=== PATIENT | female | born 1950 | race Caucasian/White ===

== ENCOUNTER 2023-12-12 04:29 | Inpatient (IN) | payer MEDICARE, OTHER, SELFPAY ==
[2023-12-11 17:33] VITALS: BP 150/94
[2023-12-11 19:35] VITALS: BP 124/59
[2023-12-11 19:46] LABS: % Basophils 0.2 % (0-2); % Eosinophils 0.1 % (0-6); % Immature Granulocytes 0.6 % (0-0.5); % Lymphocytes 2.8 % (20.5-51.1); % Monocytes 7.6 % (1.7-9.3); % Neutrophils 88.7 % (42.2-75.2); Absolute Immature Granulocytes 0.1 10^3/uL (0-0.05); Absolute Lymphocytes 0.3 10^3/uL (1.2-3.4); Absolute Monocytes 0.8 10^3/uL (0.1-0.6); Absolute Neutrophils 9.7 10^3/uL (1.4-6.5); Hematocrit 32.8 % (37.0-47.0); Hemoglobin 11.5 g/dL (12.0-16.0); Mean Corp Hgb Conc. 35.1 g/dL (33.0-37.0); Mean Corpuscular Hgb 32.2 pg (27.0-31.0); Mean Corpuscular Volume 91.9 fL (81.0-99.0); Mean Platelet Volume 9.1 fL (7.4-10.4); Nucleated Red Blood Cells % 0 %; Platelet Count 282 10^3/uL (130-400); Red Blood Cell Count 3.57 10^6/uL (4.20-5.40); Red Cell Dist. Width 13.9 % (11.5-14.5)
[2023-12-11 19:53] LABS: Lactic Acid 1.1 mmol/L (0.7-2.0)
[2023-12-11 20:00] VITALS: BP 127/65
[2023-12-11 20:13] LABS: Troponin I < 0.012 ng/ml
[2023-12-11 20:16] LABS: ALT (SGPT) 503 U/L (0-35); Albumin 4.4 g/dl (3.5-5.0); Alkaline Phosphatase 361 U/L (38-126); Blood Urea Nitrogen 18 mg/dl (7-17); Calcium 10.3 mg/dl (8.4-10.2); Carbon Dioxide 24 mmol/L (22-30); Chloride 103 mmol/L (98-107); Glucose 127 mg/dl (70-99); Potassium 4.1 mmol/L (3.5-5.1); Sodium 138 mmol/L (135-145); Total Bilirubin 2.5 mg/dl (0.2-1.3); Total Protein 6.7 g/dl (6.3-8.2); eGFR > 60.00
[2023-12-11 20:20] LABS: AST (SGOT) 805 U/L (14-36)
[2023-12-11 20:43] LABS: Urine Albumin Negative (Neg - Trace); Urine Bilirubin Negative (Negative); Urine Character Clear (Clear); Urine Color Yellow; Urine Glucose Negative (Negative); Urine Ketone Negative (Negative); Urine Leukocyte Negative (Negative); Urine Nitrite Negative (Negative); Urine Occult Blood Negative (Negative); Urine Urobilinogen 1+ (Neg - 1+)
[2023-12-11] MEDS: NSS 1000 IV (20:55)
[2023-12-11 20:56] LABS: D-Dimer 3.61 ug/mlFEU (0.00-0.50)
[2023-12-11 20:57] LABS: COVID-19 Antigen Negative (Negative)
--- NOTE | 2023-12-11 20:57 | ED.GENMED ---
History of Present Illness
General
Chief Complaint: Chest Problem
Time Seen by Provider: 12/11/23 19:23
History of Present Illness
History of Present Illness:
73-year-old female with history of GERD, hypothyroidism, hyperlipidemia, anxiety and depression presenting to the emergency department for multiple complaints. Patient reports on 11/28 she had a left hip replacement with [facility]. She notes she was
discharged the same day, has had an uncomplicated postop course, however the same day started to develop some congestion and sore throat. In the past few days she has had some chest discomfort and burning as well as shortness of breath. She tried
taking some Tums with minimal relief. Denies history of blood clots. She has been ambulating without difficulty. She was taking oxycodone, recently came off of it and was not sure if she was withdrawing from oxycodone. Denies fever, however has
been having chills. Denies known sick contacts. Denies any issues with her hip incision, no drainage. Denies additional acute medical complaints
Phy Exam
Physical Exam
Physical Exam:
General: Well-appearing, no clinical signs of dehydration, nontoxic and in no acute distress
HEENT: protecting airway
Neck: appears supple
CV: Normal heart rate, regular rhythm, no evidence of cyanosis
Resp: No accessory muscle use, no increased work of breathing, lungs clear to auscultation bilaterally
Abd: Soft and non-distended, no tenderness to palpation, normal bowel sounds
Extremities: Incision to the left hip is clean/dry/intact. Mild ecchymosis. No drainage or erythema. No warmth on palpation
Neuro: alert, no focal neurologic deficit
: deferred
Rectal: deferred
Psych: Normal affect
Skin: Intact
Course
Orders/Labs/Results
Orders:
Orders
12/11/23 17:35
Electrocardiogram (*1) Urgent
Reason for Study: Chest Pain
EKG- Treatment ONCE
12/11/23 19:34
Complete Blood Count/With Diff Urgent
Comprehensive Metabolic Panel Urgent
Lactic Acid Urgent
Lipase Urgent
Comment: ADD ON
Troponin I Urgent
12/11/23 20:00
0.9% Sodium Chloride 1000 ml [Nss] 1,000 ml IV BOLUS
12/11/23 20:01
CR Chest - 2 Views Urgent
Comment:
Reason For Exam: cough
12/11/23 20:34
COVID-19 Antigen Urgent
Source: Nasal Swab
D-Dimer Urgent
Urinalysis Urgent
Date Specimen was Collected: 12/11/23
Time Specimen was Collected: 20:32
12/11/23 20:35
Add On- LAB Urgent
Tests Added?: lipase
12/11/23 21:26
CT Pe/abd/pel W Urgent
Reason For Exam: positive dimer, s/p hip replacement
12/11/23 23:57
US Abdomen Limited Urgent
Comment:
Reason For Exam: transaminitis, biliary sludge
Abnormal Lab Results
12/11/23 12/11/23
19:34 20:34
WBC 11.0 H 10^3/uL
(4.8-10.8)
RBC 3.57 L 10^6/uL
(4.20-5.40)
Hgb 11.5 L g/dL
(12.0-16.0)
Hct 32.8 L %
(37.0-47.0)
MCH 32.2 H pg
(27.0-31.0)
Abs Immat Gran (auto) 0.1 H 10^3/uL
(0-0.05)
Absolute Neuts (auto) 9.7 H 10^3/uL
(1.4-6.5)
Absolute Lymphs (auto) 0.3 L 10^3/uL
(1.2-3.4)
Absolute Monos (auto) 0.8 H 10^3/uL
(0.1-0.6)
Immature Gran % 0.6 H %
(0-0.5)
Neutrophils % 88.7 H %
(42.2-75.2)
Lymphocytes % 2.8 L %
(20.5-51.1)
D-Dimer 3.61 H ug/mlFEU
(0.00-0.50)
BUN 18 H mg/dl
(7-17)
Glucose 127 H mg/dl
(70-99)
Calcium 10.3 H mg/dl
(8.4-10.2)
Total Bilirubin 2.5 H mg/dl
(0.2-1.3)
AST 805 H* U/L
(14-36)
ALT 503 H* U/L
(0-35)
Alkaline Phosphatase 361 H U/L
(38-126)
12/11/23 19:34
12/11/23 19:34
Vital Signs
Initial and Last Documented VS:
Initial Vital Signs
Temp Pulse Resp BP Pulse Ox
100.1 F 74 16 150/94 98
12/11/23 17:33 12/11/23 17:33 12/11/23 17:33 12/11/23 17:33 12/11/23 17:33
Last Documented Vital Signs
Temp Pulse Resp BP Pulse Ox
98.8 F 74 18 128/68 95
12/11/23 19:43 12/11/23 22:15 12/11/23 22:15 12/11/23 22:00 12/11/23 22:00
MDM/Problems Addressed
MDM/Problems Addressed:
73-year-old female with history of GERD, hyperlipidemia, depression and anxiety presenting for chest pain, shortness of breath, chills, congestion after a hip replacement on 11/28. Vital signs on arrival are significant for low-grade fever and mild
hypertension.
On exam, patient is resting comfortably, no acute distress or discomfort. Patient nontoxic. Benign cardiac and pulmonary exam. Suspect possible pulmonary infection, notes mild cough and congestion, possible COVID. Will swab and obtain chest
x-ray imaging. Patient without concern for SIRS or sepsis at this time. Patient's incision to the left hip without signs of infection. Without concern for joint infection. In the setting of chest pain and difficulty breathing after surgery,
blood clot is also a consideration, will screen with D-dimer. EKG nonischemic. Without present concern for ACS. Will start IV fluids and continue to closely monitor.
21:00 - Patient with elevated T. bili and transaminitis. Will add lipase.
00:05 -CT without evidence of PE. There is evidence of biliary sludge. In the setting of transaminitis and elevated T. bili, feel patient will require MRCP, suspected choledocholithiasis and potential cholecystitis, mild transaminitis. Will
administer ceftriaxone. Will obtain right upper quadrant ultrasound with plan for admission.
*Critical Care Note
Total Time (30-74mins, 75-104mins- exclusive of procedures): Not Applicable
ED Attending Note
-
Portions of this chart may have been created with voice recognition software.� Occasional wrong word or��sound alike� substitutions may have occurred due to the inherent limitations of voice recognition software.
Discharge Plan
Departure
Prescriptions:
No Action
polyethylene glycol 3350 [Miralax] 17 gram Powder In Packet
17 g PO NOON
meloxicam 15 mg Tablet
15 mg PO NOON
sertraline 100 mg Tablet
100 mg PO DAILY
atenolol 25 mg Tablet
12.5 mg PO BID
Theragen Tablet
1 tab PO DAILY
fexofenadine [Jennifer] 180 mg Tablet
180 mg PO DAILY
aspirin 81 mg Tablet,Delayed Release (Dr/Ec)
81 mg PO BID
acetaminophen [Tylenol Extra Strength] 500 mg Tablet
1,000 mg PO TID
levothyroxine 100 mcg Tablet
100 mcg PO DAILY
cyanocobalamin (vitamin B-12) 500 mcg Tablet
500 mcg PO MOTUWETHFR
ascorbic acid (vitamin C) [Vitamin C] 500 mg Tablet
500 mg PO DAILY
ergocalciferol (vitamin D2) [Vitamin D2] 1,250 mcg (50,000 unit) Capsule
1,250 mcg PO Q15D
zolpidem 10 mg Tablet
10 mg PO HSPRN PRN (Reason: sleep)
fluticasone propionate [Flonase] 50 mcg/actuation Bradshaw,Suspension
1 spray INTRANASAL QPM
rosuvastatin 5 mg Tablet
5 mg PO QPM
omeprazole 20 mg Tablet,Delayed Release (Dr/Ec)
20 mg PO DAILY
Referrals:
Arya Liriano DO [Family Provider] -
Interventions
Interventions:
*Risk Screen - Suicide Last Done: 12/11/23 19:45
*Neglect/Abuse Screening Last Done: 12/11/23 19:45
ED- Fall Risk Assessment Last Done: 12/11/23 19:45
*ED COVID-19 Vaccine History Last Done: 12/11/23 19:45
ED- Cardiac Assessment Last Done: 12/11/23 19:45
ED- Pulmonary Assessment Last Done: 12/11/23 19:45
Discharge Date and Time
Print Language: SWEDISH
[2023-12-11 21:10] LABS: Lipase 62 U/L (23-300)
[2023-12-11 22:00] VITALS: BP 128/68
[2023-12-11 22:21] VITALS: BMI 33.8
[2023-12-12] VITALS (13 sets, daily range): BP systolic 119–147; BP diastolic 47–85
[2023-12-12] MEDS: ROCEPHIN 1000 MG IV ×2 (00:59→23:40)
--- NOTE | 2023-12-12 03:50 | HPS.HSE ---
Family Physician
-
Family Physician: Arya Liriano DO
Chief Complaint
-
Chest discomfort with burning and shortness of breath
History of Present Illness
The patient is a 73-year-old woman the past medical history significant for GERD, hypothyroidism, hyper lipidemia, anxiety, depression, recent left hip replacement at [facility] on November 28, presenting to the emergency department due to multiple
complaints including some chest discomfort and burning that she thought was related to recently stopping oral opioids for pain from her left hip replacement. She tried to take Tums without relief. She had been taking oxycodone several times a day
as prescribed and recently stopped about 3 days ago and that is when the symptoms started. Of note she is being worked up outpatient for a pancreatic cyst that was diagnosed 3 years ago. She sees an interventional GI physician and has yearly MRIs
for which has been stable. She denies fever, no active chest pain at this time, no shortness of breath at this time, she has positive for chills. She denies any active nausea vomiting no active diarrhea.WBC 11.0 elevated D-dimer 3.61 AST 805, ALT
503, total bilirubin 2.5.
CT scan of the abdomen and pelvis shows a small amount of sludge in the gallbladder. There is no significant gallbladder wall thickening or pericholecystic fluid. The common bile duct is dilated up to 11 mm. Pancreas is noted to be normal where it
seen.
Medical History
Past Medical History
Past Medical History: Reports GERD, Hypercholesterolemia, Hypothyroidism, Psychiatric (anxiety, depression) and Other (pancreatic cyst, outpatient f/u at [facility] (sees GI IR doc yearly x 3 years))
Past Surgical History: Reports Orthopedic (November 28 left hip replacement)
Social History
Tobacco: Non-smoker
Alcohol: None
Drug: None
Family History
Family History: Other (gallstones)
Allergies / Home Medications
Allergies reflects when Allergies were last updated in [employer].
Home Medications with original date entered in [employer]
Allergy/Medication List:
Allergies
Allergy/AdvReac Type Severity Reaction Status Date / Time
morphine Allergy Rash Verified 12/11/23 17:34
Home Medications
acetaminophen 500 mg tablet (Tylenol Extra Strength) 1,000 mg PO TID 12/11/23
ascorbic acid (vitamin C) 500 mg tablet (Vitamin C) 500 mg PO DAILY 12/11/23
aspirin 81 mg tablet,delayed release 81 mg PO BID 12/11/23
atenolol 25 mg tablet 12.5 mg PO BID 12/11/23
cyanocobalamin (vitamin B-12) 500 mcg tablet 500 mcg PO MOTUWETHFR 12/11/23
ergocalciferol (vitamin D2) 1,250 mcg (50,000 unit) capsule (Vitamin D2) 1,250 mcg PO Q15D 12/11/23
fexofenadine 180 mg tablet 180 mg PO DAILY 12/11/23
fluticasone propionate 50 mcg/actuation nasal spray,suspension 1 spray intranasal QPM 12/11/23
levothyroxine 100 mcg tablet 100 mcg PO DAILY 12/11/23
meloxicam 15 mg tablet 15 mg PO NOON 12/11/23
omeprazole 20 mg tablet,delayed release 20 mg PO DAILY 12/11/23
polyethylene glycol 3350 17 gram oral powder packet (Miralax) 17 g PO NOON 12/11/23
rosuvastatin 5 mg tablet 5 mg PO QPM 12/11/23
sertraline 100 mg tablet 100 mg PO DAILY 12/11/23
therapeutic multivitamin 1 tab PO DAILY 12/11/23
zolpidem 10 mg tablet 10 mg PO HSPRN PRN sleep 12/11/23
Review of Systems
-
A 12 point ROS was completed and negative except as noted: Yes
Physical Exam
Vital Signs
Vital Signs
Temp Pulse Resp BP Pulse Ox
98.5 F 71 22 119/47 92
12/12/23 00:56 12/12/23 03:45 12/12/23 03:45 12/12/23 03:00 12/12/23 03:45
Physical Exam
General: Other (Gallstones)
HEENT: NormoCephalic, Anicteric and Moist mucous membranes
Respiratory: Clear
Cardiac: S1/S2 and Regular Rhythm
GI: Soft, Non Distended and Tender (mild epigastric tenderness)
Musculoskeletal: No Clubbing, No Cyanosis and No Edema
Skin: Warm and Dry
Neuro: AO x 3, No Motor Deficits and Nonfocal/grossly intact
Psych: Calm
Laboratory Results
-
12/11/23 19:34
12/11/23 19:34
Laboratory Results
Lactic Acid 1.1 mmol/L (0.7-2.0) 12/11/23 19:34
Total Bilirubin 2.5 mg/dl (0.2-1.3) H 12/11/23 19:34
AST 805 U/L (14-36) H* 12/11/23 19:34
ALT 503 U/L (0-35) H* 12/11/23 19:34
Alkaline Phosphatase 361 U/L (38-126) H 12/11/23 19:34
Troponin I < 0.012 ng/ml 12/11/23 19:34
Lipase 62 U/L (23-300) 12/11/23 19:34
Data Reviewed
-
Medical Tests (Nuc Med, Echo, EKG etc): Report Reviewed by me (EKG NSR)
Impression/Plan
-
IMPRESSION:
# Abdominal pain, transaminitis, radiographic concerning for choledocholithiasis
-sludge with CBD dilation 11 mm
-MRCP ordered, patient will likely require benzo prior to MRI due to anxiety related to MRI
-GI consulted
-IV Rocephin
#History of pancreatic cyst
-sees IR GI physician at [facility] for yearly MRI, stable per patient
#s/p recent left hip replacement at [facility] 11/28, recently stopped oral opioids
-possible mild opioid withdrawal symptoms
-monitor
-Scheduled Tylenol, Mobic
#GERD
#HLD
#Hypothyroidism
#Anxiety/depression
DVT proph- PCSs
Full Code
--- NOTE | 2023-12-12 07:40 | PTCARENOTE ---
Received pt from ED.Pt awake, alert and oriented x3. Pt c/o intermittent pain in left lower abd, tolerable at this time. Pt with recent Left hip surgery, Scar to left anterior thigh, scabbed with scattered bruising to lower leg and knee. Pt VSS 95%
on RA. Pt oriented to room, call vega within reach, plan of care continues.
[2023-12-12] MEDS: NSS 1000 IV ×2 (07:52→21:17)
[2023-12-12] MEDS: CLARITIN 10 MG PO (08:30)
[2023-12-12] MEDS: PROTONIX 40 MG PO (08:30)
[2023-12-12] MEDS: ASPIR LOW (ENTERIC COATED) 81 MG PO ×2 (08:30→21:19)
[2023-12-12] MEDS: SYNTHROID 100 MCG PO (08:31)
[2023-12-12] MEDS: THERAGRAN 1 TABLET PO (08:31)
[2023-12-12] MEDS: VITAMIN C 500 MG PO (08:31)
[2023-12-12] MEDS: ZOLOFT 100 MG PO (08:32)
[2023-12-12] MEDS: TENORMIN 12.5 MG PO ×2 (08:33→21:19)
[2023-12-12] MEDS: VITAMIN B-12 500 MCG PO (08:34)
--- NOTE | 2023-12-12 08:39 | W.PN.HOSP.TC ---
Today's Communication/Plan
-
For MRCP today
Assessment / Plan
Assessment / Plan
HPI: 73-year-old woman the past medical history significant for GERD, hypothyroidism, hyper lipidemia, anxiety, depression, recent left hip replacement at [facility] on November 28, presenting to the emergency department due to multiple complaints including
some chest discomfort and burning that she thought was related to recently stopping oral opioids for pain from her left hip replacement. She tried to take Tums without relief. She had been taking oxycodone several times a day as prescribed and
recently stopped about 3 days ago and that is when the symptoms started. Of note she is being worked up outpatient for a pancreatic cyst that was diagnosed 3 years ago. She sees an interventional GI physician and has yearly MRIs for which has been
stable. She denies fever, no active chest pain at this time, no shortness of breath at this time, she has positive for chills. She denies any active nausea vomiting no active diarrhea.WBC 11.0 elevated D-dimer 3.61 AST 805, ALT 503, total
bilirubin 2.5.
#Transaminitis
#Dilated CBD
GI consulted, for MRCP today
Continue IV Rocephin, trend LFTs
#Pancreatic cyst
Sees IR GI physician at [facility] for yearly MRI, stable per patient
#Recent left hip replacement at [facility] 11/28, recently stopped oral opioids
Pain meds, PT/OT
#GERD
Continue PPI
#HLD
Continue statin
#Hypothyroidism
Continue levothyroxine
#Anxiety/depression
Continue SSRI
DVT proph- SCDs
Full Code
Total time spent to see the patient on the floor, examine the patient, review data and lab results, discuss treatment plan with patient, nursing staff around 40 minutes.
Physical Exam
General: No acute distress
HEENT: Normocephalic, Atraumatic, EOMI, MMM
Respiratory: Clear to Auscultation bilaterally
Cardiac: Normal S1/S2, Regular Rate and Rhythm
GI: Soft, Nontender, Nondistended, Normal Bowel Sounds
Extremities: No Clubbing, Cyanosis
Musculoskeletal: Left hip incision healing
Neuro: Nonfocal/Grossly Intact
Psych: Calm, Cooperative
Derm: No Visible lesions
Anticipated Discharge: 24 - 48 hours
Subjective/Interval History
-
Date of Service: December 12, 2023
Epigastric abdominal pain resolved. No fever, no vomiting.
Objective Data
-
Vital Signs:
Vital Signs
Temp Pulse Resp BP Pulse Ox
98.9 F 72 17 146/66 95
12/12/23 07:40 12/12/23 07:40 12/12/23 07:40 12/12/23 07:40 12/12/23 07:40
[2023-12-12 10:02] LABS: Hematocrit 29.7 % (37.0-47.0); Hemoglobin 10.1 g/dL (12.0-16.0); Mean Corpuscular Hgb 32.3 pg (27.0-31.0); Mean Corpuscular Volume 94.9 fL (81.0-99.0); Mean Platelet Volume 9.3 fL (7.4-10.4); Platelet Count 238 10^3/uL (130-400); Red Blood Cell Count 3.13 10^6/uL (4.20-5.40); Red Cell Dist. Width 14.4 % (11.5-14.5); White Blood Cell Count 7.7 10^3/uL (4.8-10.8)
[2023-12-12 10:33] LABS: ALT (SGPT) 392 U/L (0-35); AST (SGOT) 394 U/L (14-36); Albumin 3.8 g/dl (3.5-5.0); Alkaline Phosphatase 330 U/L (38-126); Blood Urea Nitrogen 13 mg/dl (7-17); Calcium 10.3 mg/dl (8.4-10.2); Carbon Dioxide 25 mmol/L (22-30); Chloride 107 mmol/L (98-107); Estimated Creatinine Clearance 81 ml/min; Glucose 101 mg/dl (70-99); Magnesium 2.1 mg/dl (1.6-2.3); Phosphorus 2.9 mg/dl (2.5-4.5); Potassium 4.2 mmol/L (3.5-5.1); Sodium 139 mmol/L (135-145); Total Bilirubin 2.2 mg/dl (0.2-1.3); Total Protein 5.9 g/dl (6.3-8.2); eGFR > 60.00
--- NOTE | 2023-12-12 11:45 | CON.GI ---
Addendum entered and electronically signed by Jayleen Koch Do, MD 12/12/23 17:53:
I saw and examined the patient.
The resident's note was reviewed and I agree with the note.
Comment: 73yo W with h/o HL, GERD and hypothyroidism who was admitted for epigastric pain and chest discomfort. She was on acetaminophen post L hip replacement on November 28. Denies h/o liver disease in past. Vitals stable. obese NTTP no HSM.
Labs reviewed elevation of LFTs in hepatocellular pattern mostly
Impression
- Elevated LFT and abd pain
MRI with findings suggestive of choledocholithiasis
- H/o pancreatic cyst followed yearly at [facility]
- GERD
- HTN
- Hypothyroidism
- Depression/anxiety
- VALERIE on CPAP
Recommendations
- MRI reviewed
- C/w abx
- Adv to low fat diet for dinner. NPO at [place].
- Plan for ERCP unclear timing (tomorrow 12/12 vs 12/13). Will update pt tomorrow
- Serial LFTs
- C/w PPI
Will follow with you
Original Note:
Consultation
-
Date/Time Consultation Performed: 12/12/23
Reason for Consultation: abnormal LFTs with CBD dilation on imaging
Medical History
Chief Complaint / HPI
Chief Complaint: chest discomfort
History of Present Illness:
73 year old female with past medical history of GERD, hypothyroidism, hyperlipidemia, anxiety/depression, pancreatic cyst, who presented to ED 12/11/23 for chest discomfort. She recently had L hip replacement on 11/29/23, and recently weaned off
oxycodone, about 3 days ago. Following this, she concerned for opioid withdraw because at home she was shaking, teeth chattering, and had chest discomfort, which prompted her to present to ED yesterday. Her CMP showed abnormal LFTs and abdominal
CT/US showed gallbladder distension, biliary sludge, and CBD dilation up to 12mm. GI was consulted for transaminitis and concern for choledocholithiasis. Today, she reports her chest discomfort is improving. She has difficulty taking a full deep
breath, but otherwise does not feel short of breath. She denies abdominal pain/cramping, pain/difficulty with swallowing, nausea, vomiting, diarrhea, constipation, black/bloody stools. She typically has regular bowel movements that are formed and
easy to pass, and she has been using miralax since her surgery this month to prevent constipation. Since her surgery, she has also been taking ~6 extra strength tylenol per day, 2 aspirin, and meloxicam.
She denies abnormal LFTs in the past. 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 She was diagnosed with a pancreatic cyst ~3 years ago, for which she follows with Dr. Carpenter at [facility]. Records christiano
unavailable for review, but she was evaluated with EGD, EUS, and FNA. She reports that the cyst has been stable on yearly MRIs.
Past Medical History
Past Medical History: GERD, HTN, Hypothyroidism, Psychiatric (anxiety, depression) and Other (hyperlipidemia, VALERIE)
Past Surgical History: Orthopedic (L hip replacement 11/29/23, L knee replacement, lumbo-sacral fusion) and Other (thyroidectomy)
Social History
Tobacco: Non-Smoker
Alcohol: None
Drug: None
Personal:
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
Family History
Family History: CAD and Cancer (colon cancer (paternal aunt, 50s))
Allergies / Home Medications
Allergy/AdvReac Type Severity Reaction Status Date / Time
morphine Allergy Rash Verified 12/11/23 17:34
�Medication �Instructions �Recorded
acetaminophen 500 mg tablet 1,000 mg PO TID 12/11/23
(Tylenol Extra Strength)
ascorbic acid (vitamin C) 500 mg 500 mg PO DAILY 12/11/23
tablet (Vitamin C)
aspirin 81 mg tablet,delayed 81 mg PO BID 12/11/23
release
atenolol 25 mg tablet 12.5 mg PO BID 12/11/23
cyanocobalamin (vitamin B-12) 500 500 mcg PO MOTUWETHFR 12/11/23
mcg tablet
ergocalciferol (vitamin D2) 1,250 1,250 mcg PO Q15D 12/11/23
mcg (50,000 unit) capsule (Vitamin
D2)
fexofenadine 180 mg tablet 180 mg PO DAILY 12/11/23
fluticasone propionate 50 1 spray intranasal QPM 12/11/23
mcg/actuation nasal
spray,suspension
levothyroxine 100 mcg tablet 100 mcg PO DAILY 12/11/23
meloxicam 15 mg tablet 15 mg PO NOON 12/11/23
omeprazole 20 mg tablet,delayed 20 mg PO DAILY 12/11/23
release
polyethylene glycol 3350 17 gram 17 g PO NOON 12/11/23
oral powder packet (Miralax)
rosuvastatin 5 mg tablet 5 mg PO QPM 12/11/23
sertraline 100 mg tablet 100 mg PO DAILY 12/11/23
therapeutic multivitamin 1 tab PO DAILY 12/11/23
zolpidem 10 mg tablet 10 mg PO HSPRN PRN sleep 12/11/23
Review of Systems
-
All other systems: A 12 pt ROS was Negative except as stated above in HPI
Vital Signs
Temp Pulse Resp BP Pulse Ox
98.9 F 72 17 146/66 95
12/12/23 07:40 12/12/23 07:40 12/12/23 07:40 12/12/23 07:40 12/12/23 07:40
Physical Exam
Exam
General: Resting comfortably in bed, no acute distress. Well-appearing.
Heart: Regular rate and rhythm.
Lungs: Clear and equal to auscultation.
GI: Normal bowel sounds present. Abdomen soft, nontender, nondistended. No rebound, rigidity, guarding.
Extremities: Bruising present on L LE along thigh/knee. L hip surgical incision intact without drainage or erythema. Well healed surgical scar on L knee.
Results
WBC 7.7 10^3/uL (4.8-10.8) 12/12/23 09:50
Hgb 10.1 g/dL (12.0-16.0) L 12/12/23 09:50
Hct 29.7 % (37.0-47.0) L 12/12/23 09:50
MCV 94.9 fL (81.0-99.0) 12/12/23 09:50
Plt Count 238 10^3/uL (130-400) 12/12/23 09:50
Absolute Neuts (auto) 9.7 10^3/uL (1.4-6.5) H 12/11/23 19:34
Sodium 139 mmol/L (135-145) 12/12/23 09:50
Potassium 4.2 mmol/L (3.5-5.1) 12/12/23 09:50
Chloride 107 mmol/L (98-107) 12/12/23 09:50
Carbon Dioxide 25 mmol/L (22-30) 12/12/23 09:50
BUN 13 mg/dl (7-17) 12/12/23 09:50
Creatinine 0.7 mg/dL (0.6-1.0) 12/12/23 09:50
Calcium 10.3 mg/dl (8.4-10.2) H 12/12/23 09:50
Total Bilirubin 2.2 mg/dl (0.2-1.3) H 12/12/23 09:50
AST 394 U/L (14-36) H 12/12/23 09:50
ALT 392 U/L (0-35) H 12/12/23 09:50
Alkaline Phosphatase 330 U/L (38-126) H 12/12/23 09:50
Lipase 62 U/L (23-300) 12/11/23 19:34
12/10 --> 12/11
ast 805 --> 394
alt 503 --> 392
ap 361 --> 330
tbili 2.5 --> 2.2
Diagnostic Image Results:
Abdomen/Pelvis CT 12/11/23:
FINDINGS:
Liver: Top normal in size. Tiny sub-5 mm low-attenuation focus in the right lobe, too small to fully characterize. Statistically likely cyst.
Gallbladder: Biliary sludge.
Bile duct: No dilatation.
Pancreas: 1.5 cm cyst along the posterior margin of the pancreatic body. No peripancreatic inflammatory changes.
IMPRESSION:
No pulmonary embolism.
Trace bilateral pleural effusions.
Mild to moderate cardiomegaly.
Borderline lower right paratracheal low-attenuation lymph node measuring 10 mm in short axis.
Biliary sludge.
1.5 cm cyst along the posterior margin of the pancreatic body. 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 Recommend follow-up in 2 years.
Left renal cyst.
Mild diverticulosis. No evidence of acute diverticulitis.
Postsurgical changes of the lumbar spine and left hip.
Abdomen Ultrasound 12/12/23:
FINDINGS:
LIVER: Length of 14.2 cm. Homogeneous echotexture with no discrete lesions.
GALLBLADDER: Distended with internal sludge. No wall thickening or pericholecystic fluid. Negative sonographic Katz's.
BILE DUCTS: Extra-hepatic common bile duct measures 12 mm.
IMPRESSION:
Mild distention of the gallbladder with internal sludge. No evidence of acute cholecystitis.
Biliary ductal dilatation with the common bile duct measuring up to 1.2 cm, unchanged from recent CT. These findings would be better evaluated on MRCP.
Prior GI Procedures:
EGD:
patient reports EGD for chronic GERD and evaluation of pancreatic cyst
Colonoscopy:
03/2023- patient reports polyps and plan for repeat colonoscopy in 5 y
Assessment / Plan
-
73 year old female with past medical history of GERD, hypothyroidism, hyperlipidemia, anxiety/depression, pancreatic cyst, who presented to ED 12/11/23 for chest discomfort. GI consulted for abnormal LFTs and abdominal CT/US findings- gallbladder
distension, biliary sludge, and CBD dilation up to 12mm. She denies history of abnormal LFTs. She follows Dr. Carpenter at [facility] for her pancreatic cyst, which she reports has been stable on yearly MRIs.
Impression:
- Abnormal LFTs on admission- primarily hepatocellular pattern, with cholestatic component.
- Cholestatic pattern in combination with abdomen CT/US findings raises concern for choledocholithiasis, though this is not consistent with her presentation and symptoms.
- Hepatocellular pattern may be DILI, especially given history of significant acetaminophen use during the past 2 weeks.
Recommendations:
- Plan for MRCP to further evaluate possible biliary obstruction.
- Will check hepatitis panel and JOSELO.
- Continue to trend LFTs daily.
- Avoid acetaminophen use at the present time.
- Further recommendations to come.
-
-
Thank you for consultation and allowing me to participate in the patient's care. Please call the electronic masking system operator GI physician during the after hours with any questions or concerns.
[2023-12-12] MEDS: MOBIC 15 MG PO (12:38)
[2023-12-12] MEDS: MIRALAX PO (12:42)
[2023-12-12] MEDS: NSS (PRESERVATIVE FREE) 0.5 ML IV (13:41)
[2023-12-12] MEDS: ATIVAN 1 MG IV (13:41)
[2023-12-12 15:25] LABS: Acetaminophen < 10 ug/ml (10-30)
--- NOTE | 2023-12-12 15:48 | CM ---
Addendum entered by No Anne 12/13/23 13:23:
CM met with Rochelle today to complete IA.
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 She had a recent THR and her daughter has been staying with her during recuperation from [place] and will stay as long as needed after Rochelle returns home.
Plan: Discharge to home with support from daughter while needed. No need for additional supports anticipated.
PCP: Leo Gutierrez
Pharmacy: [facility]
Original Note:
CM unable to speak with Rcohelle today, as she was off the floor and unable to be seen x2 attempted visits.
Will complete IA in AM.
[2023-12-12] MEDS: CRESTOR 5 MG PO (17:11)
[2023-12-12] MEDS: STERILE WATER FOR INJECTION 10 ML IV (23:40)
--- NOTE | 2023-12-13 02:58 | DOWNTIME ---
There was a [employer] Quality [employer] Manager Downtime on 12/13/2023 from 0100 to 12/13/2023 at 0255. Downtime documentation of patient's care, including medication administrations, has been reconciled in the electronic record per guidelines. Refer to the
patient's paper chart under the miscellaneous tab to see printed paper medication records and downtime forms.
[2023-12-13 03:12] VITALS: BP 133/59
[2023-12-13] MEDS: SYNTHROID 100 MCG PO (06:10)
[2023-12-13 07:17] LABS: INR 1.16; PT 14.6 Sec (11.4-14.6)
[2023-12-13 07:25] LABS: ALT (SGPT) 274 U/L (0-35); AST (SGOT) 151 U/L (14-36); Albumin 3.5 g/dl (3.5-5.0); Alkaline Phosphatase 314 U/L (38-126); Blood Urea Nitrogen 13 mg/dl (7-17); Calcium 9.9 mg/dl (8.4-10.2); Carbon Dioxide 25 mmol/L (22-30); Chloride 108 mmol/L (98-107); Estimated Creatinine Clearance 81 ml/min; Glucose 91 mg/dl (70-99); Magnesium 1.9 mg/dl (1.6-2.3); Potassium 3.8 mmol/L (3.5-5.1); Sodium 140 mmol/L (135-145); Total Bilirubin 1.2 mg/dl (0.2-1.3); Total Protein 5.6 g/dl (6.3-8.2); eGFR > 60.00
[2023-12-13 07:46] VITALS: BP 145/72
[2023-12-13 07:49] LABS: % Basophils 0.3 % (0-2); % Eosinophils 0.9 % (0-6); % Immature Granulocytes 0.4 % (0-0.5); % Lymphocytes 11.2 % (20.5-51.1); % Neutrophils 76.2 % (42.2-75.2); Absolute Eosinophils 0.1 10^3/uL (0-0.7); Absolute Lymphocytes 0.8 10^3/uL (1.2-3.4); Absolute Monocytes 0.8 10^3/uL (0.1-0.6); Absolute Neutrophils 5.3 10^3/uL (1.4-6.5); Hemoglobin 9.8 g/dL (12.0-16.0); Mean Corp Hgb Conc. 33.8 g/dL (33.0-37.0); Mean Corpuscular Hgb 32.9 pg (27.0-31.0); Mean Corpuscular Volume 97.3 fL (81.0-99.0); Mean Platelet Volume 9.9 fL (7.4-10.4); Nucleated Red Blood Cells % 0 %; Platelet Count 253 10^3/uL (130-400); Red Blood Cell Count 2.98 10^6/uL (4.20-5.40); Red Cell Dist. Width 14.5 % (11.5-14.5)
--- NOTE | 2023-12-13 08:41 | W.PN.HOSP.TC ---
Today's Communication/Plan
-
For ERCP tomorrow
Assessment / Plan
Assessment / Plan
HPI: 73-year-old woman the past medical history significant for GERD, hypothyroidism, hyper lipidemia, anxiety, depression, recent left hip replacement at [facility] on November 28, presenting to the emergency department due to multiple complaints including
some chest discomfort and burning that she thought was related to recently stopping oral opioids for pain from her left hip replacement. She tried to take Tums without relief. She had been taking oxycodone several times a day as prescribed and
recently stopped about 3 days ago and that is when the symptoms started. Of note she is being worked up outpatient for a pancreatic cyst that was diagnosed 3 years ago. She sees an interventional GI physician and has yearly MRIs for which has been
stable. She denies fever, no active chest pain at this time, no shortness of breath at this time, she has positive for chills. She denies any active nausea vomiting no active diarrhea.WBC 11.0 elevated D-dimer 3.61 AST 805, ALT 503, total
bilirubin 2.5.
#Choledocholithiasis
#Transaminitis
#Dilated CBD
Appreciate GI input, for ERCP tomorrow
No signs or symptoms of infection, will discontinue Rocephin
Trend LFTs
#Pancreatic cyst
Sees IR GI physician at [facility] for yearly MRI, stable per patient
#Recent left hip replacement at [facility] 11/28, recently stopped oral opioids
Pain meds, PT/OT
#GERD
Continue PPI
#HLD
Continue statin
#Hypothyroidism
Continue levothyroxine
#Anxiety/depression
Continue SSRI
DVT proph- SCDs
Full Code
Total time spent to see the patient on the floor, examine the patient, review data and lab results, discuss treatment plan with patient, nursing staff around 38 minutes.
Physical Exam
General: No acute distress
HEENT: Normocephalic, Atraumatic, EOMI, MMM
Respiratory: Clear to Auscultation bilaterally
Cardiac: Normal S1/S2, Regular Rate and Rhythm
GI: Soft, Nontender, Nondistended, Normal Bowel Sounds
Extremities: No Clubbing, Cyanosis
Musculoskeletal: Left hip incision healing
Neuro: Nonfocal/Grossly Intact
Psych: Calm, Cooperative
Derm: No Visible lesions
Anticipated Discharge: 24 - 48 hours
Subjective/Interval History
-
Date of Service: December 13, 2023
No recurrence of abdominal pain. No fever, no vomiting.
Objective Data
-
Labs:
Laboratory Results
12/13/23
06:12
WBC 7.0
Hgb 9.8 L
Hct 29.0 L
Plt Count 253
PT 14.6
INR 1.16
Sodium 140
Potassium 3.8
Chloride 108 H
Carbon Dioxide 25
BUN 13
Creatinine 0.7
Glucose 91
Calcium 9.9
Total Bilirubin 1.2 D
AST 151 H
ALT 274 H
Alkaline Phosphatase 314 H
Vital Signs:
Vital Signs
Temp Pulse Resp BP Pulse Ox
100.1 F 70 16 133/59 94
12/13/23 03:12 12/13/23 03:12 12/13/23 03:12 12/13/23 03:12 12/13/23 03:12
I&O
12/12/23 12/13/23 12/14/23
06:59 06:59 06:59
Intake Total 700 / 700
Balance 700 / 700
[2023-12-13] MEDS: ASPIR LOW (ENTERIC COATED) 81 MG PO ×2 (09:07→19:45)
[2023-12-13] MEDS: CLARITIN 10 MG PO (09:07)
[2023-12-13] MEDS: TENORMIN 12.5 MG PO ×2 (09:07→19:45)
[2023-12-13] MEDS: PROTONIX 40 MG PO (09:07)
[2023-12-13] MEDS: THERAGRAN 1 TABLET PO (09:08)
[2023-12-13] MEDS: VITAMIN C 500 MG PO (09:08)
[2023-12-13] MEDS: ZOLOFT 100 MG PO (09:08)
[2023-12-13] MEDS: VITAMIN B-12 500 MCG PO (09:12)
[2023-12-13] MEDS: NSS 1000 IV (10:00)
[2023-12-13 11:14] VITALS: BP 100/85
--- NOTE | 2023-12-13 11:54 | W.PN.GI.CBS2 ---
Addendum entered and electronically signed by Jayleen Koch Do, MD 12/13/23 14:24:
I saw and examined the patient.
The Residents s note was reviewed and I agree with the note.
Comment: She denies any further abd pain. Ate 100% of low fat diet without issue. VSS. obese NTTP. Labs reviewed LFTs downtrending
Plan
- Results of MRI d/w
- Plan for ERCP with Dr Vigil tomorrow afternoon
- NPO at [place]
- Check INR tomorrow
Will follow with you
Original Note:
Today's Communication / Plan
-
ERCP tomorrow
Assessment / Plan
-
73 year old female with past medical history of GERD, hypothyroidism, hyperlipidemia, anxiety/depression, pancreatic cyst, who presented to ED 12/11/23 for chest discomfort. GI consulted for abnormal LFTs and abdominal CT/US findings- gallbladder
distension, biliary sludge, and CBD dilation up to 12mm. She denies history of abnormal LFTs. She follows Dr. Carpenter at [facility] for her pancreatic cyst, which she reports has been stable on yearly MRIs.
Impression:
Abnormal LFTs on admission
- Primarily hepatocellular pattern, likely DILI. History of significant acetaminophen use prior to admission.
- Acetaminophen level 12/11 <10.
- AST, ALT trending down.
Choledocholithiasis
- MRCP significant for choledocholithiasis without cholecystitis, consistent with CT/US findings. This would likely account for cholestatic component of abnormal LFTs on admission.
- Stable, afebrile. Asymptomatic at this time.
- Total bilirubin and alk phos trending down.
Recommendations:
- Reviewed with Dr. Vigil- plan for ERCP tomorrow 12/13 afternoon.
- Continue PO diet today, and will be NPO after midnight. Anticipate resuming PO Diet after ERCP
- Hepatitis panel and JOSELO drawn today, results pending.
- Given improvement in LFTs, consider spacing out labs.
- Avoid acetaminophen use at the present time.
- Further recommendations to come.
Subjective
Subjective
Date of Service: December 13, 2023
No complaints today. She denies abdominal pain, nausea, vomiting, diarrhea, black/bloody stools. She ate breakfast today and tolerated it well.
Objective
Data Reviewed
Laboratory Data:
Laboratory Results
12/13/23 06:12
12/13/23 06:12
Laboratory Results
PT 14.6 Sec (11.4-14.6) 12/13/23 06:12
INR 1.16 12/13/23 06:12
Phosphorus 2.9 mg/dl (2.5-4.5) 12/12/23 09:50
Magnesium 1.9 mg/dl (1.6-2.3) 12/13/23 06:12
Total Bilirubin 1.2 mg/dl (0.2-1.3) D 12/13/23 06:12
AST 151 U/L (14-36) H 12/13/23 06:12
ALT 274 U/L (0-35) H 12/13/23 06:12
Alkaline Phosphatase 314 U/L (38-126) H 12/13/23 06:12
Lipase 62 U/L (23-300) 12/11/23 19:34
Vital Signs and I&O:
Vital Signs
Temp Pulse Resp BP Pulse Ox
99.4 F 76 24 145/72 95
12/13/23 07:46 12/13/23 09:07 12/13/23 07:46 12/13/23 09:07 12/13/23 07:46
I&O
12/12/23 12/13/23 12/14/23
06:59 06:59 06:59
Intake Total 700 / 700
Balance 700 / 700
Physical Exam
Physical Exam
General: Sitting up in bed comfortably, no acute distress. Well-appearing.
Heart: Regular rate and rhythm.
Lungs: Nonlabored breathing.
GI: Normal bowel sounds present. Abdomen soft, nontender, nondistended. No rebound, rigidity, guarding.
[2023-12-13] MEDS: MIRALAX 17 GRAMS PO (13:20)
[2023-12-13] MEDS: MOBIC 15 MG PO (13:20)
[2023-12-13 15:45] VITALS: BP 149/69
[2023-12-13] MEDS: CRESTOR 5 MG PO (17:43)
[2023-12-13 19:38] VITALS: BP 139/65
[2023-12-13 23:30] VITALS: BP 144/65
[2023-12-14] VITALS (15 sets, daily range): BP systolic 14–150; BP diastolic 46–73
[2023-12-14] MEDS: SYNTHROID 100 MCG PO (05:48)
[2023-12-14 07:58] LABS: Hematocrit 28.9 % (37.0-47.0); Hemoglobin 9.8 g/dL (12.0-16.0); Mean Corp Hgb Conc. 33.9 g/dL (33.0-37.0); Mean Corpuscular Hgb 31.9 pg (27.0-31.0); Mean Corpuscular Volume 94.1 fL (81.0-99.0); Mean Platelet Volume 9.6 fL (7.4-10.4); Platelet Count 258 10^3/uL (130-400); Red Blood Cell Count 3.07 10^6/uL (4.20-5.40); Red Cell Dist. Width 14.6 % (11.5-14.5); White Blood Cell Count 4.4 10^3/uL (4.8-10.8)
--- NOTE | 2023-12-14 08:01 | W.PN.HOSP.TC ---
Addendum entered and electronically signed by Rangel Lancaster MD 12/14/23 11:39:
#Acute normocytic anemia
Check iron studies, B12/folic acid
Original Note:
Today's Communication/Plan
-
For ERCP today
Assessment / Plan
Assessment / Plan
HPI: 73-year-old woman the past medical history significant for GERD, hypothyroidism, hyper lipidemia, anxiety, depression, recent left hip replacement at [facility] on November 28, presenting to the emergency department due to multiple complaints including
some chest discomfort and burning that she thought was related to recently stopping oral opioids for pain from her left hip replacement. She tried to take Tums without relief. She had been taking oxycodone several times a day as prescribed and
recently stopped about 3 days ago and that is when the symptoms started. Of note she is being worked up outpatient for a pancreatic cyst that was diagnosed 3 years ago. She sees an interventional GI physician and has yearly MRIs for which has been
stable. She denies fever, no active chest pain at this time, no shortness of breath at this time, she has positive for chills. She denies any active nausea vomiting no active diarrhea.WBC 11.0 elevated D-dimer 3.61 AST 805, ALT 503, total
bilirubin 2.5.
#Choledocholithiasis
#Transaminitis
#Dilated CBD
Appreciate GI input, for ERCP today
No signs or symptoms of infection, discontinued Rocephin
Trend LFTs
#Pancreatic cyst
Sees IR GI physician at [facility] for yearly MRI, stable per patient
#Recent left hip replacement at [facility] 11/28, recently stopped oral opioids
Pain meds, PT/OT rec HH
#GERD
Continue PPI
#HLD
Hold statin
#Hypothyroidism
Continue levothyroxine
#Anxiety/depression
Continue SSRI
DVT proph- SQ lovenox
Full Code
Total time spent to see the patient on the floor, examine the patient, review data and lab results, discuss treatment plan with patient, nursing staff around 39 minutes.
Physical Exam
General: No acute distress
HEENT: Normocephalic, Atraumatic, EOMI, MMM
Respiratory: Clear to Auscultation bilaterally
Cardiac: Normal S1/S2, Regular Rate and Rhythm
GI: Soft, Nontender, Nondistended, Normal Bowel Sounds
Extremities: No Clubbing, Cyanosis
Musculoskeletal: Left hip incision healing
Neuro: Nonfocal/Grossly Intact
Psych: Calm, Cooperative
Derm: No Visible lesions
Anticipated Discharge: Within 24 hours
Subjective/Interval History
-
Date of Service: December 14, 2023
Denies abdominal pain, nausea, vomiting. No fever.
Objective Data
-
Labs:
Laboratory Results
12/14/23
07:16
WBC 4.4 L
Hgb 9.8 L
Hct 28.9 L
Plt Count 258
Sodium Pending
Potassium Pending
Chloride Pending
Carbon Dioxide Pending
BUN Pending
Creatinine Pending
Glucose Pending
Calcium Pending
Total Bilirubin Pending
AST Pending
ALT Pending
Alkaline Phosphatase Pending
Vital Signs:
Vital Signs
Temp Pulse Resp BP Pulse Ox
98.0 F 70 18 136/63 98
12/14/23 03:07 12/14/23 03:07 12/14/23 03:07 12/14/23 03:07 12/14/23 03:07
I&O
12/13/23 12/14/23 12/15/23
06:59 06:59 06:59
Intake Total 700 / 700 2720 / 2720
Balance 700 / 700 2720 / 2720
[2023-12-14 08:31] LABS: ALT (SGPT) 519 U/L (0-35); Albumin 3.5 g/dl (3.5-5.0); Alkaline Phosphatase 444 U/L (38-126); Blood Urea Nitrogen 14 mg/dl (7-17); Carbon Dioxide 27 mmol/L (22-30); Chloride 108 mmol/L (98-107); Estimated Creatinine Clearance 81 ml/min; Glucose 109 mg/dl (70-99); Magnesium 1.9 mg/dl (1.6-2.3); Phosphorus 3.5 mg/dl (2.5-4.5); Potassium 4.1 mmol/L (3.5-5.1); Sodium 141 mmol/L (135-145); Total Bilirubin 2.6 mg/dl (0.2-1.3); Total Protein 5.7 g/dl (6.3-8.2); eGFR > 60.00
[2023-12-14 08:40] LABS: AST (SGOT) 769 U/L (14-36)
[2023-12-14] MEDS: VITAMIN C 500 MG PO (09:08)
[2023-12-14] MEDS: THERAGRAN 1 TABLET PO (09:08)
[2023-12-14] MEDS: TENORMIN 12.5 MG PO ×2 (09:08→20:28)
[2023-12-14] MEDS: ZOLOFT 100 MG PO (09:08)
[2023-12-14] MEDS: CLARITIN 10 MG PO (09:08)
[2023-12-14] MEDS: ASPIR LOW (ENTERIC COATED) 81 MG PO ×2 (09:08→20:28)
[2023-12-14] MEDS: PROTONIX 40 MG PO (09:08)
[2023-12-14] MEDS: VITAMIN B-12 500 MCG PO (09:10)
[2023-12-14] MEDS: MOBIC 15 MG PO (11:59)
[2023-12-14] MEDS: MIRALAX PO (11:59)
[2023-12-14] MEDS: LOVENOX 40 MG SC (17:51)
[2023-12-14 19:20] LABS: Hepatitis B Surface Antigen Negative (Negative)
[2023-12-14 19:37] LABS: Hepatitis B Surface Antibody Positive; Hepatitis C Antibody Negative (Negative)
[2023-12-14 19:45] LABS: Hepatitis A Antibody, Total Negative (Negative)
[2023-12-14 21:30] LABS: Hepatitis A IgM Antibody Negative (Negative)
[2023-12-15] VITALS (7 sets, daily range): BP systolic 130–157; BP diastolic 56–73; PULSE 64; O2SAT 94
[2023-12-15] MEDS: SYNTHROID 100 MCG PO (05:20)
[2023-12-15 06:36] LABS: Hematocrit 29.4 % (37.0-47.0); Hemoglobin 10.1 g/dL (12.0-16.0); Mean Corp Hgb Conc. 34.4 g/dL (33.0-37.0); Mean Corpuscular Hgb 32.2 pg (27.0-31.0); Mean Corpuscular Volume 93.6 fL (81.0-99.0); Platelet Count 280 10^3/uL (130-400); Red Blood Cell Count 3.14 10^6/uL (4.20-5.40); Red Cell Dist. Width 14.6 % (11.5-14.5); White Blood Cell Count 6.8 10^3/uL (4.8-10.8)
[2023-12-15 06:38] LABS: ALT (SGPT) 466 U/L (0-35); AST (SGOT) 461 U/L (14-36); Albumin 3.4 g/dl (3.5-5.0); Alkaline Phosphatase 523 U/L (38-126); Blood Urea Nitrogen 12 mg/dl (7-17); Calcium 9.9 mg/dl (8.4-10.2); Carbon Dioxide 25 mmol/L (22-30); Chloride 107 mmol/L (98-107); Estimated Creatinine Clearance 95 ml/min; Glucose 106 mg/dl (70-99); Iron 91 ug/dl (37-170); Sodium 139 mmol/L (135-145); Total Bilirubin 4.4 mg/dl (0.2-1.3); Total Protein 5.6 g/dl (6.3-8.2); eGFR > 60.00
[2023-12-15 06:49] LABS: Percent Saturation 25 % (20-50); Total Iron Binding Capacity 351 ug/dl (265-497)
[2023-12-15 07:08] LABS: Ferritin 88.1 ng/ml (11.1-264.0)
[2023-12-15 08:14] LABS: Folate > 20.0 ng/ml (2.76-20); Vitamin B12 > 1000 pg/ml (239-931)
[2023-12-15] MEDS: VITAMIN C 500 MG PO (08:20)
[2023-12-15] MEDS: ZOLOFT 100 MG PO (08:20)
[2023-12-15] MEDS: THERAGRAN 1 TABLET PO (08:20)
[2023-12-15] MEDS: PROTONIX 40 MG PO (08:20)
[2023-12-15] MEDS: CLARITIN 10 MG PO (08:20)
[2023-12-15] MEDS: TENORMIN 12.5 MG PO ×2 (08:20→20:42)
[2023-12-15] MEDS: ASPIR LOW (ENTERIC COATED) 81 MG PO ×2 (08:20→20:42)
--- NOTE | 2023-12-15 08:20 | W.PN.HOSP.TC ---
Today's Communication/Plan
-
see bold
Assessment / Plan
Assessment / Plan
HPI: 73-year-old woman the past medical history significant for GERD, hypothyroidism, hyper lipidemia, anxiety, depression, recent left hip replacement at [facility] on November 28, presenting to the emergency department due to multiple complaints including
some chest discomfort and burning that she thought was related to recently stopping oral opioids for pain from her left hip replacement. She tried to take Tums without relief. She had been taking oxycodone several times a day as prescribed and
recently stopped about 3 days ago and that is when the symptoms started. Of note she is being worked up outpatient for a pancreatic cyst that was diagnosed 3 years ago. She sees an interventional GI physician and has yearly MRIs for which has been
stable. She denies fever, no active chest pain at this time, no shortness of breath at this time, she has positive for chills. She denies any active nausea vomiting no active diarrhea.WBC 11.0 elevated D-dimer 3.61 AST 805, ALT 503, total
bilirubin 2.5.
#Choledocholithiasis
#Transaminitis
#Dilated CBD
Appreciate GI input, s/p ERCP with removal of small stone/sludge 12/13
No signs or symptoms of infection, discontinued Rocephin
AST/ALT improved, but bilirubin up today
Trend LFTs, hopeful for dc tomorrow
#Acute normocytic anemia
Iron studies/B12/folic acid normal
Trend Hgb
#Pancreatic cyst
Sees IR GI physician at [facility] for yearly MRI, stable per patient
#Recent left hip replacement at [facility] 11/28, recently stopped oral opioids
Pain meds, PT/OT rec HH
#GERD
Continue PPI
#HLD
Hold statin
#Hypothyroidism
Continue levothyroxine
#Anxiety/depression
Continue SSRI
DVT proph- SQ lovenox
Full Code
Total time spent to see the patient on the floor, examine the patient, review data and lab results, discuss treatment plan with patient, nursing staff around 40 minutes.
Physical Exam
General: No acute distress
HEENT: Normocephalic, Atraumatic, EOMI, MMM
Respiratory: Clear to Auscultation bilaterally
Cardiac: Normal S1/S2, Regular Rate and Rhythm
GI: Soft, Nontender, Nondistended, Normal Bowel Sounds
Extremities: No Clubbing, Cyanosis
Musculoskeletal: Left hip incision healing
Neuro: Nonfocal/Grossly Intact
Psych: Calm, Cooperative
Derm: No Visible lesions
Anticipated Discharge: Within 24 hours
Subjective/Interval History
-
Date of Service: December 14, 2023
Reports burning epigastric adames. No fever, no vomiting.
Objective Data
-
Labs:
Laboratory Results
12/14/23
07:16
WBC 4.4 L
Hgb 9.8 L
Hct 28.9 L
Plt Count 258
Sodium 141
Potassium 4.1
Chloride 108 H
Carbon Dioxide 27
BUN 14
Creatinine 0.7
Glucose 109 H
Calcium 10.0
Total Bilirubin 2.6 H D
AST 769 H*
ALT 519 H*
Alkaline Phosphatase 444 H
Vital Signs:
Vital Signs
Temp Pulse Resp BP Pulse Ox
98.8 F 63 20 149/73 96
12/14/23 11:10 12/14/23 11:10 12/14/23 11:10 12/14/23 11:10 12/14/23 11:10
I&O
12/13/23 12/14/23 12/15/23
06:59 06:59 06:59
Intake Total 700 / 700 2720 / 2720
Balance 700 / 700 2720 / 2720
[2023-12-15] MEDS: VITAMIN B-12 500 MCG PO (08:23)
[2023-12-15] MEDS: DRISDOL (VITAMIN D2) 50000 UNITS PO (08:39)
--- NOTE | 2023-12-15 08:40 | W.PN.GI.CBS2 ---
Addendum entered and electronically signed by Jay Preston MD 12/15/23 13:25:
I saw and examined the patient.
The medical support assistant's note was reviewed and I agree with the note.
Comment: c/o chills and epigastric discomfort. Will try diet
ABD soft mild epig tender, no guarding
REC:
AST/ALT improved, but bilirubin up today
s/p ERCP yesterday with removal of small stone/sludge
Trend LFTs and check repeat in Am
Perhaps increased bilirubin due to medications given (abx) or delayed response to bile duct clearance
Will follow
Original Note:
Today's Communication / Plan
-
S/p ERCP yesterday with removal of gallstone/sludge. Advance diet as tolerated today. Repeat LFTs tomorrow.
Assessment / Plan
-
73 year old female with past medical history of GERD, hypothyroidism, hyperlipidemia, anxiety/depression, pancreatic cyst, who presented to ED 12/11/23 for chest discomfort and found to have choledocholithiasis. She denies history of gallstones or
abnormal LFTs. Of note, she follows Dr. Carpenter at [facility] for her pancreatic cyst, which she reports has been stable on yearly MRIs. She had an ERCP with Dr. Vigil on 12/13, with complete removal of small gallstone as well as sludge.
Impression:
Abnormal LFTs on admission
- Primarily hepatocellular pattern, likely DILI. History of significant acetaminophen use prior to this admission as she was recovering from recent hip surgery (11/28).
- Acetaminophen level 12/11 <10.
- Viral hepatitis panel negative; Hep B surface antibody positive, consistent with prior vaccination/exposure
- AST, ALT levels иван yesterday --> now trending down today
Choledocholithiasis, now s/p ERCP
- MRCP significant for choledocholithiasis without cholecystitis, consistent with CT/US findings on admission. This would likely account for cholestatic component of abnormal LFTs.
- S/p ERCP 12/13 with removal of gallstone and sludge.
- Total bilirubin and alk phos had been trending down --> elevation today in the context of recent ERCP.
- Stable, afebrile. Asymptomatic at this time.
Anemia
- Hgb 11.5 on admission; generally stable with improvement from 9.8 --> 10.1 today
- Clinically stable, asymptomatic
History of pancreatic cyst- followed yearly at [facility] GI
GERD
Hypertension
Hypothyroidism
Depression/Anxiety
VALERIE on CPAP
Recommendations:
- Diet advanced to full liquid this AM. Anticipate advancing to low fat diet today if tolerated.
- JOSELO results pending.
- Repeat LFTs tomorrow. If trending down and patient doing well clinically, can consider discharge home.
- Avoid acetaminophen use at the present time.
- Further recommendations to come.
Subjective
Subjective
Date of Service: December 15, 2023
Reports diffuse mild abdominal discomfort/soreness, overall improving from her pain on admission. Crestone gas-like pain overnight in upper abdomen, which resolved this AM. Has been tolerating clear liquids since last night. No nausea, vomiting,
diarrhea, constipation, black/bloody stools. Last bowel movement was yesterday and was formed, brown, easy to pass. Today she reports dark urine, which she says is unchanged from admission.
Objective
Data Reviewed
Laboratory Data:
Laboratory Results
12/15/23 04:52
12/15/23 04:52
Laboratory Results
PT 14.6 Sec (11.4-14.6) 12/13/23 06:12
INR 1.16 12/13/23 06:12
Phosphorus 3.5 mg/dl (2.5-4.5) 12/14/23 07:16
Magnesium 1.9 mg/dl (1.6-2.3) 12/14/23 07:16
Total Bilirubin 4.4 mg/dl (0.2-1.3) H D 12/15/23 04:52
AST 461 U/L (14-36) H 12/15/23 04:52
ALT 466 U/L (0-35) H 12/15/23 04:52
Alkaline Phosphatase 523 U/L (38-126) H 12/15/23 04:52
Lipase 62 U/L (23-300) 12/11/23 19:34
Vital Signs and I&O:
Vital Signs
Temp Pulse Resp BP Pulse Ox
98.8 F 69 16 150/73 100
12/15/23 08:19 12/15/23 08:19 12/15/23 08:19 12/15/23 08:19 12/15/23 08:19
I&O
12/14/23 12/15/23 12/16/23
06:59 06:59 06:59
Intake Total 2720 / 2720 480 / 480
Balance 2720 / 2720 480 / 480
Physical Exam
Physical Exam
General: Resting comfortably in bed, no acute distress. Well-developed, well-nourished.
Heart: Regular rate and rhythm.
Lungs: Nonlabored breathing. Clear and equal to auscultation bilaterally.
GI: Normal bowel sounds present. Abdomen soft, nondistended. Mild tenderness to palpation diffusely, negative Katz sign. No rebound, rigidity, guarding.
[2023-12-15 11:18] LABS: Direct Bilirubin 3.5 mg/dl (0.0-0.4)
[2023-12-15] MEDS: MIRALAX PO (11:37)
[2023-12-15] MEDS: MOBIC 15 MG PO (12:25)
--- NOTE | 2023-12-15 13:33 | CM ---
Rochelle has been improving with therapy and plan is for discharge to home. Her daughter is visiting from [place] and will stay with Rochelle for as long as she needs help.
Rochelle has been using a RW and SPC during therapy; has these already at home.
Plan: Discharge to home with no needs.
PCP: Leo Gutierrez
[facility]
[2023-12-15] MEDS: LOVENOX 40 MG SC (17:54)
[2023-12-16 04:10] VITALS: BP 148/63
[2023-12-16] MEDS: SYNTHROID 100 MCG PO (05:56)
[2023-12-16 07:19] LABS: Hematocrit 27.8 % (37.0-47.0); Hemoglobin 9.8 g/dL (12.0-16.0); Mean Corp Hgb Conc. 35.3 g/dL (33.0-37.0); Mean Corpuscular Hgb 33.1 pg (27.0-31.0); Mean Corpuscular Volume 93.9 fL (81.0-99.0); Platelet Count 241 10^3/uL (130-400); Red Blood Cell Count 2.96 10^6/uL (4.20-5.40); Red Cell Dist. Width 14.7 % (11.5-14.5); White Blood Cell Count 4.5 10^3/uL (4.8-10.8)
[2023-12-16 07:52] LABS: ALT (SGPT) 395 U/L (0-35); AST (SGOT) 246 U/L (14-36); Albumin 3.4 g/dl (3.5-5.0); Alkaline Phosphatase 513 U/L (38-126); Blood Urea Nitrogen 13 mg/dl (7-17); Calcium 9.9 mg/dl (8.4-10.2); Carbon Dioxide 24 mmol/L (22-30); Chloride 108 mmol/L (98-107); Estimated Creatinine Clearance 81 ml/min; Glucose 93 mg/dl (70-99); Sodium 140 mmol/L (135-145); Total Bilirubin 4.4 mg/dl (0.2-1.3); Total Protein 5.6 g/dl (6.3-8.2); eGFR > 60.00
[2023-12-16 07:55] VITALS: BP 154/77
[2023-12-16] MEDS: ASPIR LOW (ENTERIC COATED) 81 MG PO ×2 (07:57→20:07)
[2023-12-16] MEDS: THERAGRAN 1 TABLET PO (07:57)
[2023-12-16] MEDS: CLARITIN 10 MG PO (07:58)
[2023-12-16] MEDS: ZOLOFT 100 MG PO (07:58)
[2023-12-16] MEDS: VITAMIN C 500 MG PO (07:58)
[2023-12-16] MEDS: PROTONIX 40 MG PO (07:58)
[2023-12-16] MEDS: TENORMIN 12.5 MG PO ×2 (07:58→20:08)
--- NOTE | 2023-12-16 08:37 | W.PN.HOSP.TC ---
Today's Communication/Plan
-
See bold
Assessment / Plan
Assessment / Plan
HPI: 73-year-old woman the past medical history significant for GERD, hypothyroidism, hyper lipidemia, anxiety, depression, recent left hip replacement at [facility] on November 28, presenting to the emergency department due to multiple complaints including
some chest discomfort and burning that she thought was related to recently stopping oral opioids for pain from her left hip replacement. She tried to take Tums without relief. She had been taking oxycodone several times a day as prescribed and
recently stopped about 3 days ago and that is when the symptoms started. Of note she is being worked up outpatient for a pancreatic cyst that was diagnosed 3 years ago. She sees an interventional GI physician and has yearly MRIs for which has been
stable. She denies fever, no active chest pain at this time, no shortness of breath at this time, she has positive for chills. She denies any active nausea vomiting no active diarrhea.WBC 11.0 elevated D-dimer 3.61 AST 805, ALT 503, total
bilirubin 2.5.
#Choledocholithiasis
#Transaminitis
#Dilated CBD
Appreciate GI input, s/p ERCP with removal of small stone/sludge 12/13
No signs or symptoms of infection, discontinued Rocephin
Tolerating LRD
AST/ALT improved, but bilirubin still up today
Trend LFTs, may need HIDA, defer to GI
#Acute normocytic anemia
Iron studies/B12/folic acid normal
Trend Hgb
#Pancreatic cyst
Sees IR GI physician at [facility] for yearly MRI, stable per patient
#Recent left hip replacement at [facility] 11/28, recently stopped oral opioids
Pain meds, PT/OT rec HH
#GERD
Continue PPI
#HLD
Hold statin
#Hypothyroidism
Continue levothyroxine
#Anxiety/depression
Continue SSRI
DVT proph- SQ lovenox
Full Code
Total time spent to see the patient on the floor, examine the patient, review data and lab results, discuss treatment plan with patient, nursing staff around 38 minutes.
Physical Exam
General: No acute distress
HEENT: Normocephalic, Atraumatic, EOMI, MMM
Respiratory: Clear to Auscultation bilaterally
Cardiac: Normal S1/S2, Regular Rate and Rhythm
GI: Soft, Nontender, Nondistended, Normal Bowel Sounds
Extremities: No Clubbing, Cyanosis
Musculoskeletal: Left hip incision healing
Neuro: Nonfocal/Grossly Intact
Psych: Calm, Cooperative
Derm: No Visible lesions
Anticipated Discharge: Within 24 hours
Subjective/Interval History
-
Date of Service: December 16, 2023
Abd pain resolved, tolerating diet. No fever, no vomiting.
Objective Data
-
Labs:
Laboratory Results
12/16/23
06:23
WBC 4.5 L
Hgb 9.8 L
Hct 27.8 L
Plt Count 241
Sodium 140
Potassium 4.0
Chloride 108 H
Carbon Dioxide 24
BUN 13
Creatinine 0.7
Glucose 93
Calcium 9.9
Total Bilirubin 4.4 H
AST 246 H
ALT 395 H
Alkaline Phosphatase 513 H
Vital Signs:
Vital Signs
Temp Pulse Resp BP Pulse Ox
98.4 F 64 16 154/77 96
12/16/23 07:55 12/16/23 07:55 12/16/23 07:55 12/16/23 07:55 12/16/23 07:55
I&O
12/15/23 12/16/23 12/17/23
06:59 06:59 06:59
Intake Total 480 / 480 480 / 480
Balance 480 / 480 480 / 480
--- NOTE | 2023-12-16 09:56 | W.PN.GI.CBS2 ---
Today's Communication / Plan
-
Bilirubin remains elevated at 4.4
She feels well
Perhaps bilirubin is lagging behind her clinical symptoms, may be some edema after ERCP
Check repeat LFTs tomorrow. If better, can d/c home. If worse, consider HIDA to look for biliary obstruction, r/o cholecystitis (GB appeared normal on imaging)
Assessment / Plan
-
73 year old female with past medical history of GERD, hypothyroidism, hyperlipidemia, anxiety/depression, pancreatic cyst, who presented to ED 12/11/23 for chest discomfort and found to have choledocholithiasis. She denies history of gallstones or
abnormal LFTs. Of note, she follows Dr. Carpenter at [facility] for her pancreatic cyst, which she reports has been stable on yearly MRIs. She had an ERCP with Dr. Vigil on 12/13, with complete removal of small gallstone as well as sludge.
Impression:
Abnormal LFTs on admission
Choledocholithiasis, now s/p ERCP
History of pancreatic cyst- followed yearly at [facility] GI
Subjective
Subjective
Date of Service: December 16, 2023
Feels better today. No abd pain ,no nausea. Eating well
Objective
Data Reviewed
Laboratory Data:
Laboratory Results
12/16/23 06:23
12/16/23 06:23
Laboratory Results
PT 14.6 Sec (11.4-14.6) 12/13/23 06:12
INR 1.16 12/13/23 06:12
Phosphorus 3.5 mg/dl (2.5-4.5) 12/14/23 07:16
Magnesium 1.9 mg/dl (1.6-2.3) 12/14/23 07:16
Total Bilirubin 4.4 mg/dl (0.2-1.3) H 12/16/23 06:23
AST 246 U/L (14-36) H 07/20/24 06:23
ALT 395 U/L (0-35) H 12/16/23 06:23
Alkaline Phosphatase 513 U/L (38-126) H 12/16/23 06:23
Lipase 62 U/L (23-300) 12/11/23 19:34
Vital Signs and I&O:
Vital Signs
Temp Pulse Resp BP Pulse Ox
98.4 F 64 16 154/77 96
12/16/23 07:55 12/16/23 07:55 12/16/23 07:55 12/16/23 07:55 12/16/23 07:55
I&O
12/15/23 12/16/23 12/17/23
06:59 06:59 06:59
Intake Total 480 / 480 480 / 480
Balance 480 / 480 480 / 480
Physical Exam
Physical Exam
GI: Soft, Non Distended and Non Tender
[2023-12-16 11:20] VITALS: BP 165/71
[2023-12-16] MEDS: MIRALAX 17 GRAMS PO (12:00)
[2023-12-16] MEDS: MOBIC 15 MG PO (12:00)
--- NOTE | 2023-12-16 13:52 | W.PN.HOSP.TC ---
Today's Communication/Plan
-
Discharge today
Assessment / Plan
Assessment / Plan
HPI: 73-year-old woman the past medical history significant for GERD, hypothyroidism, hyper lipidemia, anxiety, depression, recent left hip replacement at [facility] on November 28, presenting to the emergency department due to multiple complaints including
some chest discomfort and burning that she thought was related to recently stopping oral opioids for pain from her left hip replacement. She tried to take Tums without relief. She had been taking oxycodone several times a day as prescribed and
recently stopped about 3 days ago and that is when the symptoms started. Of note she is being worked up outpatient for a pancreatic cyst that was diagnosed 3 years ago. She sees an interventional GI physician and has yearly MRIs for which has been
stable. She denies fever, no active chest pain at this time, no shortness of breath at this time, she has positive for chills. She denies any active nausea vomiting no active diarrhea.WBC 11.0 elevated D-dimer 3.61 AST 805, ALT 503, total
bilirubin 2.5.
#Choledocholithiasis
#Transaminitis
#Dilated CBD
Appreciate GI input, s/p ERCP with removal of small stone/sludge 12/13
No signs or symptoms of infection, discontinued Rocephin
Tolerating LRD
AST/ALT improved, Bilirubin finally trended down to 1.7, from 4.4
Medically stable for discharge, follow-up with GI and general surgery in the office
#Benign essential hypertension
Blood pressure elevated, Increase lisinopril to 20 mg daily,continue atenolol
#Acute normocytic anemia
Iron studies/B12/folic acid normal
Trend Hgb
#Pancreatic cyst
Sees IR GI physician at [facility] for yearly MRI, stable per patient
#Recent left hip replacement at [facility] 11/28, recently stopped oral opioids
Pain meds, PT/OT rec HH
#GERD
Continue PPI
#HLD
Hold statin
#Hypothyroidism
Continue levothyroxine
#Anxiety/depression
Continue SSRI
DVT proph- SQ lovenox
Full Code
Physical Exam
General: No acute distress
HEENT: Normocephalic, Atraumatic, EOMI, MMM
Respiratory: Clear to Auscultation bilaterally
Cardiac: Normal S1/S2, Regular Rate and Rhythm
GI: Soft, Nontender, Nondistended, Normal Bowel Sounds
Extremities: No Clubbing, Cyanosis
Musculoskeletal: Left hip incision healing
Neuro: Nonfocal/Grossly Intact
Psych: Calm, Cooperative
Derm: No Visible lesions
Anticipated Discharge: Today
Subjective/Interval History
-
Date of Service: December 16, 2023
No recurrence of epigastric abdominal pain. No fever, no vomiting. She has been tolerating her diet.
Objective Data
-
Labs:
Laboratory Results
12/16/23
06:23
WBC 4.5 L
Hgb 9.8 L
Hct 27.8 L
Plt Count 241
Sodium 140
Potassium 4.0
Chloride 108 H
Carbon Dioxide 24
BUN 13
Creatinine 0.7
Glucose 93
Calcium 9.9
Total Bilirubin 4.4 H
AST 246 H
ALT 395 H
Alkaline Phosphatase 513 H
Vital Signs:
Vital Signs
Temp Pulse Resp BP Pulse Ox
98.2 F 72 16 165/71 96
12/16/23 11:20 12/16/23 11:20 12/16/23 11:20 12/16/23 11:20 12/16/23 11:20
I&O
12/15/23 12/16/23 12/17/23
06:59 06:59 06:59
Intake Total 480 / 480 480 / 480
Balance 480 / 480 480 / 480
[2023-12-16] MEDS: ZESTRIL 10 MG PO (14:12)
[2023-12-16 15:40] VITALS: BP 140/59
[2023-12-16] MEDS: LOVENOX 40 MG SC (17:15)
[2023-12-16 23:43] VITALS: BP 147/69
[2023-12-17 05:18] LABS: Transferrin 270 mg/dL (200-360)
[2023-12-17] MEDS: SYNTHROID 100 MCG PO (06:20)
[2023-12-17] MEDS: ASPIR LOW (ENTERIC COATED) 81 MG PO (07:29)
[2023-12-17] MEDS: VITAMIN C 500 MG PO (07:29)
[2023-12-17] MEDS: TENORMIN 12.5 MG PO (07:30)
[2023-12-17] MEDS: PROTONIX 40 MG PO (07:30)
[2023-12-17] MEDS: THERAGRAN 1 TABLET PO (07:30)
[2023-12-17] MEDS: CLARITIN 10 MG PO (07:30)
[2023-12-17] MEDS: ZESTRIL 10 MG PO ×2 (07:30→10:48)
[2023-12-17] MEDS: ZOLOFT 100 MG PO (07:30)
[2023-12-17 07:55] VITALS: BP 167/72
[2023-12-17 08:33] LABS: ALT (SGPT) 287 U/L (0-35); AST (SGOT) 103 U/L (14-36); Albumin 3.5 g/dl (3.5-5.0); Alkaline Phosphatase 455 U/L (38-126); Blood Urea Nitrogen 17 mg/dl (7-17); Calcium 10.2 mg/dl (8.4-10.2); Carbon Dioxide 25 mmol/L (22-30); Chloride 108 mmol/L (98-107); Estimated Creatinine Clearance 81 ml/min; Glucose 94 mg/dl (70-99); Potassium 4.2 mmol/L (3.5-5.1); Sodium 140 mmol/L (135-145); Total Bilirubin 1.7 mg/dl (0.2-1.3); Total Protein 5.8 g/dl (6.3-8.2); eGFR > 60.00
--- NOTE | 2023-12-17 10:40 | W.DCSUMMARY ---
Addendum entered and electronically signed by Rangel Lancaster MD 12/17/23 11:13:
Patient declined home care. She is discharged home, self-care.
Original Note:
Discharge Summary
Discharge Data
Date of Admission: 12/12/23
Date of Discharge: 12/17/23
-
Pending Results: No
Hospital Course
Discharge diagnosis:
Choledocholithiasis
Transaminitis
Benign essential hypertension
Pancreatic cyst
Recent left hip replacement at [facility] on 11/29/2023
Acute normocytic anemia
Hypothyroidism
Anxiety/depression
Morbid obesity due to excess calories
Consults: GI
Procedures:
12/14/2023 ERCP with removal of small stones/sludge
Abdominal MRI:
Layer of decreased T2-weighted signal within the dependent portion of the gallbladder, compatible with small stones and/or sludge.
Tiny amount of edema along the peripheral margin of the gallbladder fundus as described, nonspecific. Please correlate with any clinical symptoms that would suggest acute cholecystitis.
On 2 sequences, suggestion of small filling defects within the dependent posterior portion of the distal common bile duct, suspicious for small common bile duct calculi and/or sludge. Evaluation is limited on the other sequences. There appears to be
mild intrahepatic bile duct dilation. The superior aspect of the common bile duct is dilated, measuring up to 9.5 mm.
Pancreatic cystic lesions, the largest in the pancreatic tail. The patient reportedly is being followed for these pancreatic cystic lesions at an outside institution.
Hospital course:
73-year-old female with a past medical history significant for GERD, hypothyroidism, hyperlipidemia, anxiety, depression, and recent left hip replacement at [facility] on 11/29/23 who was admitted for epigastric abdominal pain secondary to
choledocholithiasis.
Patient was seen in conjunction with GI, MRCP does confirm choledocholithiasis with associated transaminitis. Her epigastric abdominal pain resolved. She underwent ERCP on 12/14/2023. She did have recurrence of epigastric abdominal pain
postprocedure. This resolved. She tolerated a low residue diet. After the procedure, her LFTs improved, however her bilirubin increased to 4.0. She was monitored for 2 more days, her bilirubin did increase to 1.7.
Patient has a history of hypertension, and her blood pressure was elevated during her hospitalization. She was started on lisinopril 20 mg daily, prescription has been provided. She can continue her atenolol 12.5 mg twice a day.
Patient is medically stable and cleared by GI for discharge. Her acetaminophen has been discontinued. She needs to hold her statin for 1 week. She needs to have repeat liver function tests with her PCP in 1 week. She needs to follow-up with her
primary care doctor in 1 week, and her usual GI doctor in the office. She has been referred to general surgery for elective cholecystectomy.
Disposition: Home with home care
Discharge planning: Required 42 min
Discharge Plan
-
Patient Disposition: Home with Home Care
Discharge Diagnosis/Procedures: Choledocholithiasis, pancreatic cyst, hypertension, recent left hip replacement,
Condition: Good
Diet: Low Residue
Activity: As tolerated
Driving Restrictions: As prior to admission
Blood Work: CMP with your PCP in 1 week
Other Services: PT
Activity Restrictions/Additional Instructions:
Your blood pressure in the hospital was high, you were started on lisinopril 20 mg daily, please continue.
Please follow-up with your primary care doctor in 1 week, you will need repeat liver function tests at that time with your primary care doctor.
Please follow-up with your usual GI doctor in the office in 3-4 weeks, and general surgery as needed for elective cholecystectomy.
Referrals:
Stephen Gambino MD [Active] - in two to three weeks
Arya Liriano DO [Family Provider] - in one week
Prescriptions:
New
lisinopril 20 mg tablet
20 mg PO DAILY Qty: 30 0RF
Continued
polyethylene glycol 3350 [Miralax] 17 gram Powder In Packet
17 g PO NOON
meloxicam 15 mg Tablet
15 mg PO NOON
sertraline 100 mg Tablet
100 mg PO DAILY
atenolol 25 mg Tablet
12.5 mg PO BID
therapeutic multivitamin Tablet
1 tab PO DAILY
fexofenadine 180 mg Tablet
180 mg PO DAILY
aspirin 81 mg Tablet,Delayed Release (Dr/Ec)
81 mg PO BID
levothyroxine 100 mcg Tablet
100 mcg PO DAILY
cyanocobalamin (vitamin B-12) 500 mcg Tablet
500 mcg PO MOTUWETHFR
ascorbic acid (vitamin C) [Vitamin C] 500 mg Tablet
500 mg PO DAILY
ergocalciferol (vitamin D2) [Vitamin D2] 1,250 mcg (50,000 unit) Capsule
1,250 mcg PO Q15D
zolpidem 10 mg Tablet
10 mg PO HSPRN PRN (Reason: sleep)
fluticasone propionate 50 mcg/actuation [place],Suspension
1 spray INTRANASAL QPM
omeprazole 20 mg Tablet,Delayed Release (Dr/Ec)
20 mg PO DAILY
Held
rosuvastatin 5 mg Tablet
5 mg PO QPM
Hold Instructions: Resume on 12/25/23.
Discontinued
acetaminophen [Tylenol Extra Strength] 500 mg Tablet
1,000 mg PO TID
Discharge Orders:
Discharge Patient (As Directed); Ordered 12/17/23
Ordered By: Rangel Lancaster
Discharge Date and Time
Print Language: TELUGU
[2023-12-17] MEDS: MOBIC 15 MG PO (10:48)
[2023-12-17] MEDS: MIRALAX PO (10:49)
--- NOTE | 2023-12-17 15:41 | CM ---
met with patient at bedside.she is stable for dc home.again patient has declined home care.she signed the [facility] letterfamily to transport home.
== END 2023-12-17 11:51 | disposition home or self-care (01) | DRG 445 ==
LOC: 4 EAST ACU 04:29
PROVIDERS: Emergency Medicine; Internal Medicine Gastroenterology; Student in an Organized Health Care Education/Training Program; ADMITTING PHYSICIAN Internal Medicine; ATTENDING PHYSICIAN Family Medicine; CONSULT PHYSICIAN Internal Medicine Gastroenterology; EMERGENCY PHYSICIAN Student in an Organized Health Care Education/Training Program; FAMILY PHYSICIAN Internal Medicine
PROC: 0FC98ZZ Extirpation of Matter from Common Bile Duct, Via Natural or Artificial Opening Endoscopic (ICD-10-PCS; 2023-12-14)
PROC: 0F798ZZ Dilation of Common Bile Duct, Via Natural or Artificial Opening Endoscopic (ICD-10-PCS; 2023-12-14)
DX: K80.50 Calculus of bile duct without cholangitis or cholecystitis without obstruction (principal); K86.2 Cyst of pancreas; I10 Essential (primary) hypertension; E03.9 Hypothyroidism, unspecified; F32.A Depression, unspecified; D64.9 Anemia, unspecified; E66.01 Morbid (severe) obesity due to excess calories; Z68.33 Body mass index [BMI] 33.0-33.9, adult; K83.8 Other specified diseases of biliary tract; K21.9 Gastro-esophageal reflux disease without esophagitis; E78.5 Hyperlipidemia, unspecified; F41.9 Anxiety disorder, unspecified; R74.01 Elevation of levels of liver transaminase levels; Z96.642 Presence of left artificial hip joint; Z98.890 Other specified postprocedural states; Z79.82 Long term (current) use of aspirin; Z79.890 Hormone replacement therapy; Z79.899 Other long term (current) drug therapy; Z88.5 Allergy status to narcotic agent; Z83.79 Family history of other diseases of the digestive system
CPT/HCPCS: 71046; 71275; 74177; 74181; 74330; 76000; 76705; 80053; 80143; 81003; 82248; 82607; 82728; 82746; 83540; 83550; 83605; 83690; 83735; 84100; 84466; 84484; 85025; 85027; 85379; 85610; 86038; 86706; 86708; 86709; 86803; 87340; 87811; 93005; 96361; 96374; 97116; 97162; 97530; 99285; C1769; Q9967

== ENCOUNTER → 2024-02-12 09:11 | Day surgery (SDC) | payer MEDICARE, OTHER, SELFPAY ==
[2024-02-12 10:22] LABS: Hematocrit 40.4 % (37.0-47.0); Hemoglobin 13.5 g/dL (12.0-16.0); Mean Corp Hgb Conc. 33.4 g/dL (33.0-37.0); Mean Corpuscular Hgb 32.1 pg (27.0-31.0); Mean Platelet Volume 10.1 fL (7.4-10.4); Platelet Count 242 10^3/uL (130-400); Red Blood Cell Count 4.21 10^6/uL (4.20-5.40); Red Cell Dist. Width 13.3 % (11.5-14.5); White Blood Cell Count 6.2 10^3/uL (4.8-10.8)
[2024-02-12 10:29] LABS: ALT (SGPT) 17 U/L (0-35); AST (SGOT) 22 U/L (14-36); Albumin 4.4 g/dl (3.5-5.0); Alkaline Phosphatase 81 U/L (38-126); Blood Urea Nitrogen 23 mg/dl (7-17); Calcium 10.7 mg/dl (8.4-10.2); Carbon Dioxide 28 mmol/L (22-30); Chloride 103 mmol/L (98-107); Glucose 91 mg/dl (70-99); Potassium 4.6 mmol/L (3.5-5.1); Sodium 144 mmol/L (135-145); Total Bilirubin 0.5 mg/dl (0.2-1.3); Total Protein 6.7 g/dl (6.3-8.2); eGFR > 60.00
== END ==
LOC: SDSPAT 09:11
PROVIDERS: ATTENDING PHYSICIAN Surgery; FAMILY PHYSICIAN Internal Medicine
DX: Z01.810 Encounter for preprocedural cardiovascular examination (principal); Z01.812 Encounter for preprocedural laboratory examination; K80.50 Calculus of bile duct without cholangitis or cholecystitis without obstruction
CPT/HCPCS: 93005; 36415; 80053; 85027

== ENCOUNTER 2024-02-23 06:18 | Day surgery (SDC) | payer MEDICARE, OTHER, SELFPAY ==
[2024-02-12 09:54] VITALS: BMI 29.1
[2024-02-23] VITALS (13 sets, daily range): BP systolic 93–136; BP diastolic 39–66; BMI 29.1
[2024-02-23] MEDS: NORMOSOL-R/PLASMALYTE-A 1000 IV (08:10)
[2024-02-23] MEDS: TYLENOL 1000 MG PO (08:10)
== END 2024-02-23 12:30 | disposition home or self-care (01) ==
LOC: SDS 06:18
PROVIDERS: ATTENDING PHYSICIAN Surgery
DX: K80.10 Calculus of gallbladder with chronic cholecystitis without obstruction (principal)
CPT/HCPCS: 47563; 88304; 74300; 76000

== ENCOUNTER 2024-09-17 06:05 | Day surgery (SDC) | payer MEDICARE, OTHER, SELFPAY ==
[2024-09-04 13:47] VITALS: BMI 30.3
--- NOTE | 2024-09-06 07:53 | PTCARENOTE ---
Abn ECG, Dr. Rios notified, no new interventions required.
[2024-09-17] VITALS (9 sets, daily range): BP systolic 111–127; BP diastolic 50–74; BMI 30.3
[2024-09-17] MEDS: HEPARIN 5000 UNITS SC (06:34)
[2024-09-17] MEDS: TYLENOL 1000 MG PO (06:34)
[2024-09-17] MEDS: NORMOSOL-R/PLASMALYTE-A 1000 IV (06:34)
[2024-09-17] MEDS: NEURONTIN 300 MG PO (06:34)
[2024-09-17 08:26] LABS: Turbo PTH 638.6 pg/ml (13.6-85.8)
--- NOTE | 2024-09-17 08:59 | OR.RPT ---
Operative Report
Operative Report
Date of Operation: September 17, 2024
Preoperative Diagnosis: Hyperparathyroidism - E210
Postoperative Diagnosis: Same
Surgeon: Donovan Feliz M.D.
Operation: Neck exploration, Left Superior and Right Inferior Parathyroidectomy - [id number]
Anesthesia: GET
Estimated Blood Loss: 3 cc
Drains: None
Specimen: Left upper and right lower neck nodules, rule out parathyroid adenoma
Complications: None
Procedure:
The patient was taken to the operating room and placed in the usual supine position. After adequate general endotracheal anesthesia was established, the patient's neck was extended, prepped, and draped in the typical sterile fashion. A 4 cm portion
of the old transcervical incision was reopened with the #15 blade, and this was taken through the skin into the subcutaneous tissue. The underlying platysma muscle was divided, and subplatysmal flaps were created superiorly to the thyroid cartilage
and inferiorly to the sternal notch. Strap muscles were identified and at the midline.
Attention was turned to the patient's right side of the neck. The right thyroid lobe was mobilized medially. During this process, the right recurrent laryngeal nerve was identified and preserved throughout the surgery. The right inferior and
superior parathyroid glands were identified. The right inferior parathyroid gland looked larger, so it was excised and sent to the pathology department, which showed a hypercellular parathyroid gland only weighing 25 mg. The right superior
parathyroid gland was left in situ.
Attention was turned to the left side of the neck. Although she had a left thyroidectomy previously, there was some left thyroid lobe, which was mobilized medially. During this process, the left recurrent laryngeal nerve was identified and preserved
throughout the surgery. The left upper neck nodule was identified and noted to be enlarged, excised, and sent to the pathology department, which showed a hypercellular parathyroid gland weighing 284 mg. The normal-appearing left inferior parathyroid
gland was identified and preserved. The intraoperative PTH levels normalized.
After obtaining adequate hemostasis, the strap muscles were reapproximated with #3-0 Vicryl in a running fashion. The platysma muscle was reapproximated with #3-0 Vicryl in an interrupted fashion, and the skin was approximated with #4-0 Monocryl in
a running subcuticular fashion. The Steri-Strips and sterile dressings were placed. The patient tolerated the procedure well. The final instrument, needle, and sponge counts were correct. The patient was extubated and transferred to the PACU.
[2024-09-17 09:18] LABS: Turbo PTH 33.6 pg/ml (13.6-85.8)
== END 2024-09-17 11:40 | disposition home or self-care (01) ==
LOC: SDS 06:05
PROVIDERS: ATTENDING PHYSICIAN Surgery
DX: E21.3 Hyperparathyroidism, unspecified (principal)
CPT/HCPCS: 60500; 88305; 88332; 83970; 88331